=== PATIENT | male | born 1960 | race Caucasian/White ===

== ENCOUNTER 2021-11-19 10:18 | Emergency (ER) | payer OTHER ==
[~2021-11-19] VITALS: Ht 177.8 cm; Wt 67.1 kg
== END 2021-11-19 13:33 | disposition home or self-care (01) ==
LOC: ED 10:18
DX: M25.512 Pain in left shoulder (principal); X58.XXXA Exposure to other specified factors, initial encounter
CPT/HCPCS: 36415; 73030; 80048; 84484; 85025

== ENCOUNTER 2023-06-14 12:51 | Emergency (ER) | payer OTHER ==
[~2023-06-14] VITALS: Ht 177.8 cm; Wt 67.3 kg
[~2023-06-14 12:51] MED LIST: HYDROCODON-ACE1 EA10 PO; LEVOFLOXACIN500 MG PO
--- OUTSIDE RECORDS SUMMARY | 2023-06-14 12:58 | XMS ---
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/Center: [facility] Current \F\ [facility] PHONE: [phone] [facility]se[facility] has no Care Guidelines for this patient. [facility] MO[facility] NOTE: Visits indicate total known visits. ED/UCC VISIT TRACKING (12 MO.) 06/14/2023 12:51 [facility] TYPE: Emergency COMPLAINT: - DIFFICULTY BREATHING 05/24/2023 16:47 [facility] TYPE: Emergency COMPLAINT: - R TESTICLE PAIN DIAGNOSES: - Epididymitis - Right testicular pain INPATIENT VISIT TRACKING (12 MO.) No inpatient visits to display in this time frame [email or web address]
[2023-06-14] MEDS ORDERED: methylPREDNISolone SOD SUCC 125 MG/2 ML VIAL IV ONE (13:00)
[2023-06-14] MEDS ORDERED: ALBUTEROL/IPRATROPIUM 3 ML NEB INH ONE ×2 (13:00)
[2023-06-14 13:42] LABS: INFLUENZA B NAA NEGATIVE (NEGATIVE); RESPIRATORY SYNCYTIAL VIR NAA NEGATIVE (NEGATIVE)
[2023-06-14] MEDS ORDERED: METHYLPREDNISOLO4 M1 PO (13:55)
[2023-06-14] MEDS ORDERED: TAMIFLU75 MG PO (13:55)
[2023-06-14 14:03] VITALS: BP 144/88
== END 2023-06-14 14:07 | disposition home or self-care (01) ==
LOC: ED 12:51
PROVIDERS: Family Medicine
DX: J10.1 Influenza due to other identified influenza virus with other respiratory manifestations (principal)
CPT/HCPCS: 71045; 87502; 94640; 96374; 99284-25; J2930; U0002

== ENCOUNTER 2025-03-07 13:19 | Emergency (ER) | payer SELFPAY ==
[~2025-03-07] VITALS: Ht 172.7 cm; Wt 65.5 kg
[~2025-03-07 13:19] MED LIST changes: +METHYLPREDNISOLO4 M1 PO; +TAMIFLU75 MG PO
[2025-03-07] MEDS ORDERED: KETOROLAC TROMETHAMINE 15 MG/ML VIAL IV ONE (13:45)
[2025-03-07 13:59] LABS: BASOPHILS 0.3 % (0.2-1.2); EOSINOPHILS 1.4 % (0.8-7.0); LYMPHOCYTES 26.4 % (21.8-53.1); MCH 30.9 PG (25.7-32.2); MCHC 33.3 g/dL (32.3-36.5); MCV 92.6 fL (79.0-92.2); MONOCYTES 10.8 % (5.3-12.2); NEUTROPHILS 60.8 % (34.0-67.9); RBC 5.28 M/uL (4.63-6.08)
[2025-03-07] MEDS ORDERED: SODIUM CHLORIDE 0.9% 1,000 ML IV PRN (14:00)
[2025-03-07 14:15] LABS: ALT (SGPT) 20.0 U/L (14-59); AST (SGOT) 18.0 U/L (15-37); GLOMERULAR FILTRATION RATE,EST 94.0 mL/min (>60); PROTEIN, TOTAL 7.1 g/dL (6.4-8.2); UREA NITROGEN 20.0 mg/dL (7-18)
[2025-03-07 14:55] LABS: BLOOD/HGB, URINE NEGATIVE (Negative); KETONE, URINE NEGATIVE (Negative); LEUK ESTERASE, URINE NEGATIVE (negative); NITRITE, URINE NEGATIVE (negative)
[2025-03-07] MEDS ORDERED: HYDROCODON-ACE1 EA10 PO (15:50)
[2025-03-07] MEDS ORDERED: PREDNISONE20 MG PO (15:50)
[2025-03-07] MEDS ORDERED: predniSONE 20 MG TAB PO ONE (16:00)
[2025-03-07 16:29] VITALS: BP 133/58
== END 2025-03-07 16:29 | disposition home or self-care (01) ==
LOC: ED 13:19
PROVIDERS: Emergency Medicine
DX: M54.50 Low back pain, unspecified (principal); Z79.899 Other long term (current) drug therapy
CPT/HCPCS: 36415; 80053; 81003; 85025; 99283; J7030; J7512